=== PATIENT | male | born 1975 | race Caucasian/White ===

== ENCOUNTER 2017-04-02 20:35 | Inpatient (IN) | payer OTHER ==
[~2017-04-02] VITALS: Ht 6 cm; Wt 65.0 kg
--- NOTE | ~2017-04-02 | EKG ---
[address] [address] ELECTROCARDIOGRAM REPORT Name: YOLANDA,MARK Room #: 204-P ADM IN M.R.#: [id number] Admission: 04/02/17 Attend Phys: Bhupendra Kendrick MD Discharge: Date of : 79 Report #: [id number] THIS REPORT FOR: //name// [facility] ED Test Date: 2017-04-02 Test Time: 20:39:33 Pat Name: MARIO GUERRERO Department: Room: 204 Gender: M Biochemistry Technician: Skyler CORNELIUS : 1975 Requested By: Davonte Uribe Order Number: [id number] MD: Michael Armando Measurements Intervals [place] Rate: 84 P: 40 NC: 148 QRS: 39 QRSD: 87 T: 55 QT: 381 QTc: 451 Interpretive Statements Sinus rhythm Baseline wander in lead(s) III No previous ECG available for comparison Electronically Signed On 04-03-2017 14:04:36 CDT by Michael Armando [email or web address] <ELECTRONICALLY SIGNED> By: Michael Armando MD 04/03/17 1404 38 38 Michael Armando MD /ANTHONY
--- NOTE | ~2017-04-02 | EKG ---
[address] [address] ELECTROCARDIOGRAM REPORT Name: MARIO GUERRERO Room #: 204-P ADM IN M.R.#: [id number] Admission: 04/02/17 Attend Phys: Bhupendra Kendrick MD Discharge: Date of : 79 Report #: [id number] THIS REPORT FOR: //name// [facility] Test Date: 2017-04-03 Test Time: 14:29:18 Pat Name: MARIO GUERRERO Department: Room: 204 P Gender: M Pre Billing Clinician: brinda : 1975 Requested By: Siddharth [place] Order Number: [id number] MD: Michael Armando Measurements Intervals [place] Rate: 91 P: 37 IA: 158 QRS: 1 QRSD: 88 T: 16 QT: 341 QTc: 420 Interpretive Statements Sinus rhythm Borderline T abnormalities, anterior leads Compared to ECG 04/02/2017 20:39:33 T-wave abnormality now present Electronically Signed On 04-03-2017 16:33:32 CDT by Michael Armando [email or web address] <ELECTRONICALLY SIGNED> By: Michael Armando MD 04/03/17 1633 1429 1429 Michael Armando MD /ANTHONY
--- NOTE | ~2017-04-02 | CATHLAB ---
[facility] [address] [place] [address] INVASIVE PROCEDURE REPORT Name: MARIO GUERRERO Room #: 204-P ADM IN M.R.#: [id number] Admission: 04/02/17 Attend Phys: Zach Pike Discharge: Date of : 79 Date of Service: 04/03/17 1707 Report #: [id number] THIS REPORT FOR: //name// APPROVED REPORT Patient Details Patient Status: In-Patient Room #: The patient is a 41 year-old male Event Personnel Siddharth [place] Furnace Brazer, Reece Lassiter RN RN, Paulina Samano Monitor, Honey Nick Screnoc Procedures Performed Art Access - R femoral artery* Left Heart Cath Coronaries, Bypass Grafts 1361289 LHCCORCABG YRN Place w/wo Plasty Single RAMUS Inter 009007 74814 Initial Mod Sed Same Phys/QHP Gr 103427 48121 Mod Sed Same Phys/QHP Ea 535861 Indication Unstable angina Risk Factors Hypercholesterolemia, Coronary Artery DiseaseHypertension, Diabetes Previous Procedures/Diagnoses Previous CABG Procedure Narrative The patient was brought urgently to the Cardiac Catheterization Laboratory and was prepped and draped in a sterile manner. The Right Groin^ was infiltrated with 1% Lidocaine subcutaneous anesthesia. A PINNACLE 4FR Sheath #[id number] sheath was inserted into the RFA^. Coronary angiography was performed using coronary diagnostic catheters. The right coronary system was accessed and visualized with a JR 4 catheter. The left coronary system was accessed and visualized with a JL 4 catheter. The left ventricle was accessed and visualized with a Pigtail catheter. Left ventricular/Aortic Valve gradient assessed via catheter pullback. Left ventriculogram was performed in ZALDIVAR projection. The patient tolerated the procedure well and there were no complications associated with the procedure. There was no hematoma. Intraoperative Conscious Sedation Sedation start time: 12:27 Case end Time: [facility] [address] [place] [address] INVASIVE PROCEDURE REPORT Name: MARIO GUERRERO Room #: 204-P [facility] IN M.R.#: [id number] Admission: 04/02/17 Attend Phys: Zach Pike Discharge: Date of : 79 Date of Service: 04/03/17 1707 Report #: [id number] 13:36 Fentanyl 100.0 mcg Versed 1.0 mg Fluoro Time: 18.01 minutes Dose: 1813 mGy Contrast Type and Amount: Omnipaque 345 ml Coronary Angiography The patient's coronary anatomy is right dominant. Diagnostic Cath Left Main No flow-limiting lesions. LAD Severe obstruction proximally. Patent sequential EARLY graft- with a oxvb-wk-ikaq anastomosis to a diagonal artery and an end-to-side anastomosis to the mid LAD. There is both retrograde and antegrade flow after the anastomosis to the LAD. Diagonal 1 Total occlusion, originates from mid segment of the LAD. Circumflex Severe disease in distal segment, before supplying one moderate size OM. Patent free radial conduit to terminal OM branch, with mild disease at the ostium. Probably related to vasospasm. Right Coronary Severe disease in proximal RCA. Patent SVG to PDA, with retrograde filling of several RPL branches. The PDA has 2 branches, one branch is a small-caliber vessel with a severe stenosis. Recommend medical therapy. Left Ventriculography The left ventricle is normal in size with normal contractility. The left ventricular ejection fraction is estimated to be 55-60%. IVUS Findings Euphora RX 2.0 x 15 #[id number] Hemodynamics The aortic pressure is 104/76 mmHg with a mean of 91 mmHg. The left ventricular pressure is 107/3 mmHg with a mean of mmHg. The left ventricular end diastolic pressure is 14 mmHg. PCI Technique Lesion Anticoagulation was achieved with Angiomax. Percutaneous coronary intervention was performed on the ramus intermedius segment. The lesion stenosis prior to intervention was % with REGGIE 3 flow. A VISTA 6FR JL4 #[id number] Guide Catheter was used to engage the ostium. A Luge Wire .014 x 182CM #[id number] Interventional Guidewire was used to cross the lesion. [facility] [address] [place] [address] INVASIVE PROCEDURE REPORT Name: MARIO GUERRERO Room #: 204-P [facility] IN M.R.#: [id number] Admission: 04/02/17 Attend Phys: Zach Pike Discharge: Date of : 79 Date of Service: 04/03/17 1707 Report #: [id number] BALLOON DILATION A Balloon catheter Euphora RX 2.0 x 10 #[id number] was inserted and inflated up to 4.00atm for 6seconds. Additional Inflation: 4.00atm for 7seconds. Additional Inflation: 4.00atm for 5seconds. STENT DEPLOYMENT A drug-eluting stent XIENCE ALPINE RX 2.5 X 12 #[id number] was inserted and inflated up to 12.00atm for 31seconds. POST STENT DEPLOYMENT BALLOON DILATION A Balloon catheter Euphora NC RX 2.5 x 6 #[id number] was inserted and inflated up to 16.00atm for 24seconds. Additional Inflation: 18.00atm for 17seconds. Final angiography reveals 0 % stenosis with REGGIE 3 flow. BALLOON DILATION A Balloon catheter Euphora RX 2.0 x 15 #[id number] was inserted and inflated up to 10.00atm for 16seconds. Additional Inflation: 12.00atm for 10seconds. Conclusion 1. Successful insertion of 2.25 mm drug-eluting stent into the mid segment of the ramus artery, postdilated with a 2.5 mm noncompliant balloon. 2. Patent sequential EARLY graft to diagonal artery and mid LAD. 3. Patent free radial conduit to terminal OM branch, with spasm at the ostium. 4. Patent SVG to PDA, with retrograde filling of RPL branches. The PDA has 2 branches, 1 branch has severe disease but is a small-caliber vessel and medical therapy is recommended. 5. Recommend dual antiplatelet therapy. 6. Normal LV systolic function. Recommendations Medical Therapy <ELECTRONICALLY SIGNED> By: Siddharth [place] MD 04/03/171706 06 06 Siddharth Randolph MD /INF
--- NOTE | ~2017-04-02 | 2DMMODE ---
[facility] [address] [address] 2 D/M-MODE ECHOCARDIOGRAM Name: MARIO GUERRERO Room #: 204-P ADM IN M.R.#: [id number] Admission: 04/02/17 Attend Phys: Zach Pike Discharge: Date of : 79 Date of Service: 04/03/17 1032 Report #: [id number] THIS REPORT FOR: //name// APPROVED REPORT Study performed: 04/03/2017 09:24:21 EXAM: Comprehensive 2D, Doppler, and color-flow Echocardiogram Patient Location: Echo lab Room #: 204 Status: routine BSA: 1.73 HR: 93 bpm BP: 123/86 mmHg Other Information Study Quality: Adequate Indications Diabetes Dyspnea CAD Chest Pain Hypertension/HDD S^P CABG 01/2017 2D Dimensions RVDd: 31.86 mm LVEF(%): 60.34 (>50%) IVSd: 10.36 (7-11mm) LVOT Diam: 20.46 (18-24mm) LVDd: 41.74 mm PWd: 10.18 (7-11mm) Ascending Ao: 29.58 (22-36mm) LVDs: 28.44 (25-40mm) Aortic Root: 30.29 mm IVC: 10.00 mm Murphy's LVEF: 60.34 % Volumes Left Atrial Volume (Systole) Single Plane 4CH: 23.97 mL Single Plane 2CH: 14.55 mL LA ESV Index: 13.00 mL/m2 Aortic Valve AoV Peak Prince.: 1.02 m/s AO Peak Gr.: 4.15 mmHg LVOT Max P.20 mmHg LVOT Max V: 0.74 m/s HARJINDER Vmax: 2.39 cm2 [facility] [address] [address] 2 D/M-MODE ECHOCARDIOGRAM Name: YOLANDAMARIO Room #: 204-P [facility] IN .R.#: [id number] Admission: 04/02/17 Attend Phys: Zach Pike Discharge: Date of : 79 Date of Service: 04/03/17 1032 Report #: [id number] Mitral Valve E/A Ratio: 0.8 MV Decel. Time: 169.37 ms MV E Max Prince.: 0.50 m/s MV A Prince.: 0.63 m/s MV PHT: 49.12 ms IVRT: 78.43 ms Pulmonary Valve PV Peak Prince.: 0.76 m/s PV Peak Gr.: 2.33 mmHg Pulmonary Vein P Vein S: 0.49 m/s P Vein A: 0.22 m/s P Vein D: 0.44 m/s P Vein A Dur.: 101.5 msec P Vein S/D Ratio: 1.11 Left Ventricle The left ventricle is normal size. There is normal left ventricular wall thickness. The left ventricular systolic function is normal. The left ventricular ejection fraction is within the normal range. LVEF is 60-65%. Grade I - abnormal relaxation pattern. Right Ventricle The right ventricle is normal size. The right ventricular systolic function is normal. Atria The left atrium size is normal. The right atrium size is normal. Aortic Valve The aortic valve is normal in structure. No aortic regurgitation is present. There is no aortic valvular stenosis. Mitral Valve The mitral valve is normal in structure. There is no mitral valve regurgitation noted. No evidence of mitral valve stenosis. Tricuspid Valve The tricuspid valve is normal in structure. There is no tricuspid valve regurgitation noted. Pulmonic Valve The pulmonary valve is normal in structure. There is no pulmonic valvular regurgitation. [address] [address] 2 D/M-MODE ECHOCARDIOGRAM Name: MARIO GUERRERO Room #: 204-P [facility] IN .R.#: [id number] Admission: 04/02/17 Attend Phys: Zach Pike Discharge: Date of : 79 Date of Service: 04/03/17 1032 Report #: [id number] Great Vessels The aortic root is normal in size. IVC is normal in size and collapses >50% with inspiration. Pericardium There is no pericardial effusion. <Conclusion> The left ventricle is normal size. The left ventricular systolic function is normal. Grade I - abnormal relaxation pattern. The right ventricle is normal size. The left atrium size is normal. The aortic valve is normal in structure. There is no mitral valve regurgitation noted. There is no pericardial effusion. <ELECTRONICALLY SIGNED> By: Siddharth [place] MD 04/03/171031 31 103 Siddharth Randolph MD /INF
--- NOTE | ~2017-04-02 | EKG ---
[place] [address] [facility], [facility] [place] [address] ELECTROCARDIOGRAM REPORT Name: MARIO GUERRERO Room #: 204-P ADM IN M.R.#: [id number] Admission: 04/02/17 Attend Phys: Bhupendra Kendrick MD Discharge: Date of : 79 Report #: [id number] THIS REPORT FOR: //name// [facility] Test Date: 2017-04-04 Test Time: 06:03:20 Pat Name: MARIO GUERRERO Department: Room: 204 P Gender: M Chipper: JIMMIE : 1975 Requested By: Siddharth [place] Order Number: [id number] MD: Best Hernandez Measurements Intervals [place] Rate: 77 P: 25 NE: 165 QRS: -3 QRSD: 91 T: 7 QT: 360 QTc: 408 Interpretive Statements Sinus rhythm Low voltage, precordial leads Borderline T abnormalities, anterior leads Compared to ECG 04/03/2017 14:29:18 No significant change was found Electronically Signed On 04-04-2017 7:27:57 CDT by Best Hernandez [email or web address] <ELECTRONICALLY SIGNED> By: Best Hernandez MD, [facility] 04/04/17 0727 2 2 Best Hernandez MD, [facility] /EPI
[2017-04-02 20:36] VITALS: BP 122/97
[2017-04-02 21:03] LABS: ABSOLUTE NEUTROPHILS 4.3 thou/uL (1.4-8.2); BASOPHILS 0.9 % (0.0-2.0); EOSINOPHILS 1.2 % (0.0-3.0); HEMATOCRIT 41.3 % (42.0-52.0); HEMOGLOBIN 14.2 gm/dL (14.0-18.0); LYMPHOCYTES 25.2 % (24.0-44.0); MCH 28.4 pg (26.0-34.0); MCHC 34.4 g/dL (28.0-37.0); MCV 82.4 fL (80.0-100.0); MONOCYTES 6.6 % (1.0-8.0); PLATELET COUNT 210 thou/uL (150-400); POLYS 66.1 % (36.0-66.0); RBC 5.01 mil/uL (4.50-6.00); RDW 14.2 % (10.5-14.5); WBC 6.5 thou/uL (4.0-11.0)
[2017-04-02] MEDS ORDERED: LOPRESSOR25 PO (21:06)
[2017-04-02] MEDS ORDERED: ASPIR 8181 MG PO (21:06)
[2017-04-02] MEDS ORDERED: IMDUR 30 MG TAB30 M1 PO (21:07)
[2017-04-02] MEDS ORDERED: NEURONTIN 400M400 M2 PO (21:07)
[2017-04-02] MEDS ORDERED: LIPITOR40 MG PO (21:08)
[2017-04-02 21:10] LABS: MANUAL DIFF NO
[2017-04-02 21:19] LABS: ANION GAP 10 mmol/L (7-16); BUN 9 mg/dL (7-18); CALCIUM 9.5 mg/dL (8.5-10.1); CHLORIDE 94 mmol/L (98-107); CO2 26 mmol/L (21-32); CREATININE 1.1 mg/dL (0.7-1.3); POTASSIUM 3.6 mmol/L (3.5-5.1); SODIUM 130 mmol/L (136-145)
[2017-04-02 21:21] LABS: GLUCOSE 519 mg/dL (74-106)
[2017-04-02 21:24] LABS: TROPONIN-I < 0.04 ng/mL (<0.04-0.07)
[2017-04-02 21:25] LABS: LARGE PLATELETS MANY
[2017-04-02 23:05] VITALS: BP 127/87
[2017-04-02 23:28] VITALS: BP 109/79
[2017-04-02 23:58] VITALS: BP 115/79
[2017-04-03] VITALS (14 sets, daily range): BP systolic 99–140; BP diastolic 7–97
[2017-04-03] MEDS ORDERED: NOVOLIN R100 UNIT/3 SUBQ (00:04)
[2017-04-03] MEDS ORDERED: HUMALOG100 UNIT/1 SUBQ (00:06)
[2017-04-03 03:13] LABS: HEMATOCRIT 35.4 % (42.0-52.0); MCH 27.4 pg (26.0-34.0); MCHC 33.5 g/dL (28.0-37.0); MCV 81.7 fL (80.0-100.0); RBC 4.34 mil/uL (4.50-6.00); WBC 5.8 thou/uL (4.0-11.0)
[2017-04-03 03:15] LABS: ANION GAP 11 mmol/L (7-16); BUN 7 mg/dL (7-18); CALCIUM 8.5 mg/dL (8.5-10.1); CHLORIDE 101 mmol/L (98-107); CO2 23 mmol/L (21-32); CREATININE 0.7 mg/dL (0.7-1.3); GLUCOSE 266 mg/dL (74-106); POTASSIUM 3.5 mmol/L (3.5-5.1); SODIUM 135 mmol/L (136-145)
[2017-04-03 03:22] LABS: HEMOGLOBIN 11.9 gm/dL (14.0-18.0)
[2017-04-03 03:27] LABS: TROPONIN-I < 0.04 ng/mL (<0.04-0.07)
[2017-04-03] MEDS ORDERED: PERCOCET PO (11:24)
[2017-04-04] VITALS: BP 103/71
[2017-04-04 03:42] LABS: HEMATOCRIT 32.9 % (42.0-52.0); HEMOGLOBIN 10.9 gm/dL (14.0-18.0); MCH 27.3 pg (26.0-34.0); MCHC 33.2 g/dL (28.0-37.0); MCV 82.4 fL (80.0-100.0); RBC 3.99 mil/uL (4.50-6.00); RDW 14.1 % (10.5-14.5); WBC 6.8 thou/uL (4.0-11.0)
[2017-04-04 04:00] VITALS: BP 98/65
[2017-04-04 04:01] LABS: ANION GAP 7 mmol/L (7-16); BUN 8 mg/dL (7-18); CALCIUM 8.4 mg/dL (8.5-10.1); CHLORIDE 103 mmol/L (98-107); CO2 27 mmol/L (21-32); CREATININE 0.8 mg/dL (0.7-1.3); GLUCOSE 212 mg/dL (74-106); POTASSIUM 3.7 mmol/L (3.5-5.1); SODIUM 137 mmol/L (136-145); TROPONIN-I < 0.04 ng/mL (<0.04-0.07)
[2017-04-04 05:11] LABS: GLYCOHEMOGLOBIN (HGB A1C) 9.7 % (4.8-5.6)
[2017-04-04 07:52] VITALS: BP 103/73
[2017-04-04] MEDS ORDERED: BRILINTA90 MG PO (08:01)
[2017-04-04 09:13] VITALS: BP 103/73
== END 2017-04-04 12:43 | disposition home or self-care (01) | DRG 247 ==
LOC: ER 20:35 → EROBS 22:38 → 2N 22:38 → ENTRNSPT 04-04 12:25 → EDTRNSPTSTS 04-04 12:30 → 2N 04-04 12:43
PROVIDERS: Internal Medicine Cardiovascular Disease; Nurse Practitioner; Nurse Practitioner Family
DX: R07.9 Chest pain, unspecified (principal); E11.9 Type 2 diabetes mellitus without complications; I10 Essential (primary) hypertension; E78.00 Pure hypercholesterolemia, unspecified; I25.10 Atherosclerotic heart disease of native coronary artery without angina pectoris; E78.5 Hyperlipidemia, unspecified; Z95.1 Presence of aortocoronary bypass graft; Z91.010 Allergy to peanuts; Z88.2 Allergy status to sulfonamides; Z91.018 Allergy to other foods; Z79.899 Other long term (current) drug therapy; I25.2 Old myocardial infarction; Z82.49 Family history of ischemic heart disease and other diseases of the circulatory system
CPT/HCPCS: 10081